=== PATIENT | male | born 1950 | race Caucasian/White ===

== ENCOUNTER 2021-04-08 11:12 | Day surgery (SDC) | payer OTHER ==
[~2021-04-08] VITALS: Ht 177.8 cm; Wt 94.1 kg
[~2021-04-08 11:12] MED LIST: ASPI81CH PO; ATOR10 PO; Hair, Skin & N1 EACH PO; LIVALO2 MG PO; LOSARTAN POTASS25 MG PO
== END 2021-04-08 13:44 | disposition home or self-care (01) ==
LOC: ORSCSDS 11:12
PROVIDERS: Internal Medicine Gastroenterology
PROC: 0DBL8ZX Excision of Transverse Colon, Via Natural or Artificial Opening Endoscopic, Diagnostic (ICD-10-PCS; principal; 2021-04-08 12:30)
PROC: 0DBH8ZX Excision of Cecum, Via Natural or Artificial Opening Endoscopic, Diagnostic (ICD-10-PCS; principal; 2021-04-08 12:30)
PROC: 0DBK8ZX Excision of Ascending Colon, Via Natural or Artificial Opening Endoscopic, Diagnostic (ICD-10-PCS; principal; 2021-04-08 12:30)
DX: Z12.11 Encounter for screening for malignant neoplasm of colon (principal); Z86.010 Personal history of colon polyps; D12.0 Benign neoplasm of cecum; D12.2 Benign neoplasm of ascending colon; D12.3 Benign neoplasm of transverse colon; K63.3 Ulcer of intestine; K64.8 Other hemorrhoids; K57.30 Diverticulosis of large intestine without perforation or abscess without bleeding; Z79.899 Other long term (current) drug therapy
CPT/HCPCS: 88305; J0330; J0461; J2405; J2704; J7120

== ENCOUNTER → 2021-09-13 | Outpatient (CLI) | payer OTHER ==
[2021-09-15 09:13] LABS: Stool Occult Bld Immuno 1 Negative (NEGATIVE)
== END | disposition home or self-care (01) ==
LOC: LAB SHORT 15:00
PROVIDERS: Hospitalist
DX: Z12.11 Encounter for screening for malignant neoplasm of colon (principal)
CPT/HCPCS: 82274

== ENCOUNTER 2024-08-26 12:36 | Day surgery (SDC) | payer OTHER ==
[~2024-08-26] VITALS: Ht 177.8 cm; Wt 93.0 kg
[~2024-08-26 12:36] MED LIST changes: +Atropine Sulfate 0.1 MG/ML 10ML SYR ONE; +Glycopyrrolate 0.2 MG/ML 1MLVIAL ONE; +Lactated Ringer's 1,000 ML IV ONE; +Ondansetron HCl 2 MG / ML 2ML Vial ONE; +ePHEDrine Sulfate 50 MG/ML 1ML Injection ONE; +propofoL 50 ML IV ONE
[2024-08-26] MEDS ORDERED: Lactated Ringer's 1,000 ML IV ONE (13:53)
[2024-08-26 14:54] VITALS: BP 109/74
== END 2024-08-26 14:56 | disposition home or self-care (01) ==
LOC: ORSCSDS 12:36
PROVIDERS: Specialist
PROC: 0DBL8ZX Excision of Transverse Colon, Via Natural or Artificial Opening Endoscopic, Diagnostic (ICD-10-PCS; principal; 2024-08-26 14:15)
DX: Z12.11 Encounter for screening for malignant neoplasm of colon (principal); D12.3 Benign neoplasm of transverse colon; Z86.0101 Personal history of adenomatous and serrated colon polyps; K57.30 Diverticulosis of large intestine without perforation or abscess without bleeding; I10 Essential (primary) hypertension; G47.33 Obstructive sleep apnea (adult) (pediatric); E78.5 Hyperlipidemia, unspecified; Z79.899 Other long term (current) drug therapy
CPT/HCPCS: 88305; J0461; J2405; J2704; J7120